=== PATIENT | female | born 1980 | race African-American/Black ===

== ENCOUNTER 2017-06-11 11:01 | Inpatient (IN) ==
[2017-06-11] MEDS ORDERED: ONDANSETRON 4 MG/2 ML VIAL IV PRN (11:20)
[2017-06-11] MEDS ORDERED: MEPERIDINE 50 MG/1 ML VIAL IV PRN (11:20)
[2017-06-11] MEDS ORDERED: OXYTOCIN/LR 20 UNIT/1,000 ML BAG IV SCH (11:30)
[2017-06-11] MEDS: LACTATED RINGERS 1,000 ML IV SCH ×2 (11:35→12:53)
[2017-06-11] MEDS ORDERED: fentaNYL 2 MCG/ROPIV 0.2% EPID 150 ML EPIDURAL SCH (11:44)
[2017-06-11] MEDS ORDERED: hydrOXYzine HCL 25 MG/1 ML VIAL IM PRN (11:44)
[2017-06-11] MEDS ORDERED: diphenhydrAMINE 50 MG/1 ML VIAL IV PRN (11:44)
[2017-06-11] MEDS ORDERED: FAMOTIDINE 20 MG/2 ML VIAL IV ONE (11:44)
[2017-06-11] MEDS ORDERED: CITRIC ACID/SODIUM CITRATE 30 ML UDCUP PO ONE (11:44)
[2017-06-11] MEDS ORDERED: ePHEDrine 50 MG/ML AMP IV PRN (11:44)
[2017-06-11 11:48] LABS: Basophils % 0.2 % (0.0-0.8); Eosinophils % 0.2 % (0.00-10.9); Hematocrit 26.7 VOL% (35.7-47.0); Immature Granulocytes % 1.2 %; Immature Granulocytes Absolute 0.16 #; Lymphocytes # 1.8 10*3/uL (1.4-4.0); Lymphocytes % 13.9 % (21.3-54.2); Mean Corpuscular HGB Conc 33.7 GM/DL (32-36); Mean Corpuscular Hemoglobin 26 PG (27-34); Mean Corpuscular Volume 76.3 FL (87-102); Mean Platelet Volume 10.3 FL (9.6-12.0); Monocytes # 0.7 10*3/uL (0.11-0.8); Monocytes % 5.3 % (1.7-12.7); NRBC # 0.04 10*3/uL; Neutrophils # 10.5 10*3/uL (1.4-7.4); Neutrophils % 79.2 % (38.7-73.9); Platelet Count 209 T/CUMM (130-400); Red Cell Distribution Width 16.1 % (9.3-17.3); White Blood Count 13.2 T/CUMM (4-12)
[2017-06-11 11:58] LABS: INR 0.9; PT Patient Result 9.5 SECS; Partial Thromboplastin Time 30.1 SECS (0-40)
[2017-06-11 12:34] LABS: Albumin 2.7 G/DL (3.4-5.0); Bilirubin,Total 0.7 MG/DL (0.2-1.0); Calcium 8.3 MG/DL (8.5-10.1); Osmolality,Calculated 270.7 MOS/KG (273-304); Potassium 3.4 MMOL/L (3.5-5.1); Total Protein 6.5 G/DL (6.4-8.3); Uric Acid 4.2 MG/DL (2.6-6.0)
--- NOTE | 2017-06-11 14:12 | OB/GYN History & Physical ---
History of Present Illness Chief complaint: In for evaluation of hypertension and uterine contractions. History of present illness: Ms. Chavez is a 36 year old female who is a 7 para 4 living for 1 ectopic. Her JUNI is 06/22/2017 for an estimated gestational age of 38 weeks and 3 days. The patient presents to the labor department for routine nonstress test due to elevated blood pressures. However upon arrival to the unit the patient was still experiencing elevated blood pressures along with uterine contractions and bulging BOW. In light of these findings the patient was admitted for augmentation of labor due to hypertension complicated by . The risk and benefits were thoroughly discussed with this patient and significant other, plan of care was discussed with Dr. Woody and all parties were in agreement plan. The patient received her care through the [facility] and it was complicated by the fact that the patient has a history of hypertension and PIH during her previous pregnancies. She has had 4 previous vaginal deliveries with the largest weighing 6 pounds and 13 ounces. labs: She is O+, rubella is immune, RPR is nonreactive, hepatitis B negative, HIV negative, GBS culture positive. Review of systems is negative with exception of above. Home Medications Medication Instructions Recorded Confirmed Type Ondansetron Tab [Zofran Tab] 4 mg PO Q4-6H 06/08/17 06/11/17 History Promethazine Tab [Phenergan Tab] 25 mg PO Q6H PRN 06/11/17 06/11/17 History Allergies Allergy/AdvReac Type Severity Reaction Status Date / Time No Known Allergies Allergy Unverified 01/22/17 15:49 12 point system: reviewed and no additional remarkable complaints except as stated Medical,Surgical,& Family Hx - Medical History Cardio: History of: Hypertension Reproductive: History of: Ectopic , Complication, Sexually Transmitted Disorders (Trichomonas 4 years ago) - Surgical History Reproductive Surgeries: Surgical HX of;: Dilation and Curettage - Family History Family History: Reports;: Family Hypertension - Social History Smoking Status: Former smoker Have you smoked in the last 12 months: Yes Marital Status: Single Lives With:: Significant Other Functional capacity: independent ambulation Exam SUPERVISOR PRODUCTION - Constitutional General appearance: mild distress - Antepartum / Post Antepartum Exam Cervix - Dilatation: 3-4 cm Effacement: 80% Station: -2 Rupture: Spontaneous rupture Presentation: Vertex Heart Rate: 120S Abdomen obstetrics: Present: bowel sounds normal Vagina: Present: normal moisture, discharge Uterus exam: Present: enlarged Anus/Rectum: Present: normal perianal skin - Head Head exam: Present: normal inspection - Respiratory Respiratory exam: Present: clear to auscultation bilaterally - Cardiovascular Cardiovascular exam: Present: regular rate and rhythm - GI/Abdominal GI/Abdominal exam: Present: normal bowel sounds, soft - Extremities Exam Extremities exam: Present: normal inspection - Back Exam Back exam: Present: normal inspection - Neurological Exam Neurological exam: Present: alert, oriented X3 - Psychiatric Psychiatric exam: Present: normal affect, normal mood - Skin Skin exam: Present: normal color, warm Assessment and Plan (1) 38 and 3 days Status: Acute Assessment and plan: Admit IV fluids PIH and blood pressure management Epidural anesthesia if desired Internal monitors if indicated IV Pitocin per protocol IV antibiotics prophylactically Anticipate Current Visit: Yes (2) Hypertension affecting in third trimester Status: Acute Assessment and plan: Same as above. Current Visit: Yes Results - Labs CBC & BMP: 06/11/17 11:40 06/11/17 11:40
[2017-06-11] MEDS ORDERED: OXYTOCIN 10 UNIT/ML VIAL ONE (18:03)
[2017-06-11] MEDS ORDERED: miSOPROStol 200 MCG TABLET ONE (19:33)
[2017-06-11] MEDS ORDERED: HYDROCORTISONE 2.5% RECTAL CREAM 30 GM TUBE TOP PRN (21:50)
[2017-06-11] MEDS ORDERED: OXYTOCIN/LR 20 UNIT/1,000 ML BAG IV ONE (21:50)
[2017-06-11] MEDS ORDERED: DIPH/TET/ACEL PERT BOOSTER VACCINE 0.5 ML VIAL IM ONE (21:50)
[2017-06-11] MEDS ORDERED: ACETAMINOPHEN 325 MG TABLET PO PRN (21:50)
[2017-06-11] MEDS ORDERED: BISACODYL 10 MG SUPP RECTAL PRN (21:50)
[2017-06-11] MEDS ORDERED: RHO(D) IMMUNE GLOBULIN 300 MCG SYRINGE IM ONE (21:50)
[2017-06-11] MEDS ORDERED: BENZOCAINE 20%/MENTHOL 0.5% SPRAY 56 GM CAN TOP PRN (21:50)
[2017-06-11] MEDS ORDERED: LANOLIN 50% CREAM 0.3 OZ TUBE TOP PRN (21:50)
[2017-06-11] MEDS ORDERED: MEASLES/MUMPS/RUBELLA VACCINE 0.5 ML VIAL SUBCUT ONE (21:50)
[2017-06-11] MEDS ORDERED: oxyCODONE/ACETAMINOPHEN 5-325 MG TABLET PO PRN ×2 (21:50)
[2017-06-11] MEDS ORDERED: WITCH HAZEL PADS 100/JAR TOP PRN (21:50)
--- NOTE | 2017-06-11 21:50 | Event Note ---
HPI: Ms. Stanton is a 36-year-old female who presented to the labor department with elevated blood pressures. The patient was also having uterine contractions and experienced spontaneous rupture of membranes. She was admitted for augmentation of labor due to the above. The risk and benefits were thoroughly discussed with this patient and significant other, plan of care was discussed with Dr. Woody and all parties were in agreement plan. Stage I: The patient was admitted she received IV fluids and IV Pitocin per protocol. She did experience spontaneous rupture membranes with clear fluid noted. She received an epidural for pain control. The patient progressed in labor with a CAT 1 tracing until she was about 5 cm dilated she started to experience a CAT 2 tracing. The tracing was correct with position change, oxygenation, fluid challenge. The Pitocin was also DC during this time of the CAT 2 tracing after several minutes had passed an attempt to resume the Pitocin was initiated. The patient did well for a while until she started back having a CAT 2 tracing. At this time an IUPC catheter was inserted and an amnioinfusion was performed. Dr. Woody was notified of the patient's status at this time in continue to be updated throughout stage I of the labor. The patient had a few more episodes of a CAT 2 tracing but each time had good recovery and the Pitocin remained off during the time that the patient was recovering. When an adequate recovery period was determined the Pitocin was resumed and the patient continued to progress until she was complete. Stage II: The patient was complete and instructed to push. She pushed for approximately 45 minutes after which time and the 's head was at a +3 station it was noted to be presumably in an OP position the 's head was manually rotated and immediately after the rotation the infant's head was delivered a nuchal cord 1 was noted and reduced. The mouth and nose suctioned on the perineum. The remainder the infant was delivered at 2136 a viable male infant was noted. The infant also had a terminal meconium stool. Apgars were 8 at 1 minute and 9 at 5 minutes. weight was 6 pounds and 7 ounces. A cord pH was obtained and sent to the lab. Stage III: A spontaneous delivery of a Benoit placenta with three-vessel cord noted. The placenta was further examined appeared to be grossly intact. The vagina cervix inspected with no tears or lacerations noted. Estimated blood loss was approximately 150 cc. At the time of dictation mother and baby are both in stable condition.
[2017-06-11] MEDS ORDERED: ACETAMINOPHEN/CODEINE 300-30 MG TABLET PO PRN (21:52)
[2017-06-11] MEDS: IBUPROFEN 800 MG TABLET PO PRN (23:37)
[2017-06-12 05:13] LABS: Basophils # 0.1 10*3/uL (0.0-0.2); Basophils % 0.2 % (0.0-0.8); Hematocrit 27.3 VOL% (35.7-47.0); Hemoglobin 9.2 GM/DL (12.0-16.0); Immature Granulocytes % 1.3 %; Immature Granulocytes Absolute 0.37 #; Lymphocytes # 2.2 10*3/uL (1.4-4.0); Lymphocytes % 8.1 % (21.3-54.2); Mean Corpuscular HGB Conc 33.7 GM/DL (32-36); Mean Corpuscular Hemoglobin 26 PG (27-34); Mean Platelet Volume 10.4 FL (9.6-12.0); Monocytes # 1.5 10*3/uL (0.11-0.8); Monocytes % 5.5 % (1.7-12.7); NRBC # 0.03 10*3/uL; Neutrophils # 23.3 10*3/uL (1.4-7.4); Neutrophils % 84.9 % (38.7-73.9); Platelet Count 207 T/CUMM (130-400); Red Blood Count 3.59 MC/CUMM (3.8-5.5); Red Cell Distribution Width 16.1 % (9.3-17.3); White Blood Count 27.5 T/CUMM (4-12)
[2017-06-12 06:28] LABS: Band Neutrophils 12 % (0-10); Eosinophils 2 % (0-10); Hypochromasia Slight; Lymphocytes 9 % (20-55); Polychromasia Slight; Segmented Neutrophils 73 % (50-85); Target Cells Slight; Total Cells Counted 100
[2017-06-12 06:29] LABS: Platelet Estimate Adequate
[2017-06-12] MEDS: IBUPROFEN 800 MG TABLET PO PRN (09:10)
[2017-06-12] MEDS: DOCUSATE SODIUM 100 MG CAPSULE PO SCH ×2 (09:11→20:18)
--- NOTE | 2017-06-12 09:28 | OB/GYN Progress Note ---
Assessment and Plan (1) 38 and 3 days Status: Acute Assessment and plan: Admit IV fluids PIH and blood pressure management Epidural anesthesia if desired Internal monitors if indicated IV Pitocin per protocol IV antibiotics prophylactically Anticipate Current Visit: Yes (2) Hypertension affecting in third trimester Status: Acute Assessment and plan: Same as above. Current Visit: Yes (3) Vaginal delivery Status: Acute Assessment and plan: Initiate routine orders. 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 Bonding well with infant. Exam SWITCHBOARD OPERATOR RECEPTIONIST - Constitutional Vitals: Vital Signs Temp Pulse Resp BP 06/12/17 06:00 18 06/12/17 04:00 97.6 F 71 20 132/75 06/12/17 01:47 97.9 F 89 18 144/104 06/12/17 00:47 97.9 F 81 18 135/70 06/12/17 00:17 98.5 F 85 18 138/78 06/11/17 23:46 98.5 F 96 H 20 136/67 06/11/17 20:00 98.7 F 71 22 132/63 General appearance: no acute distress - Antepartum / Post Post Exam Breast: bilateral: normal Abdomen obstetrics: Present: bowel sounds normal Vulva: bilateral: normal Vagina: Present: normal moisture, discharge (Light lochia rubra) Uterus exam: Present: enlarged (Fundus firm and midline) Anus/Rectum: Present: normal perianal skin - Respiratory Respiratory exam: Present: clear to auscultation bilaterally - Cardiovascular Cardiovascular exam: Present: regular rate and rhythm - GI/Abdominal GI/Abdominal exam: Present: normal bowel sounds, soft - Extremities Exam Extremities exam: Present: normal inspection - Back Exam Back exam: Present: normal inspection - Neurological Exam Neurological exam: Present: alert, oriented X3 - Psychiatric Psychiatric exam: Present: normal affect, normal mood - Skin Skin exam: Present: normal color, warm Results - Labs CBC & BMP: 06/12/17 04:51 06/11/17 11:40
[2017-06-12] MEDS ORDERED: ONDANSETRON 4 MG/2 ML VIAL IV PRN (11:04)
[2017-06-12] MEDS: FERROUS SULFATE 325 MG TABLET PO SCH ×2 (11:22→20:18)
[2017-06-13] MEDS ORDERED: ONDANSETRON 4 MG TABLET PO PRN (00:03)
[2017-06-13] MEDS: IBUPROFEN 800 MG TABLET PO PRN (00:13)
--- NOTE | 2017-06-13 06:56 | Anesthesia Post-Op ---
Anesthesia Post OP - Post Ansesthetic Evaluation Patient seen in post op: Yes Resp: within normal limits CV: within normal limits Mental: within normal limits Temp: within normal limits [id number]: within normal limits Nausea and Vomiting: within normal limits Pain: within normal limits
[2017-06-13 07:50] VITALS: BP 131/76
--- NOTE | 2017-06-13 08:49 | Discharge Summary ---
Hospital Course - Hospital Course Hospital Course: day #2 Status post vaginal Lungs are clear, cardiac exam benign, uterus is nice and firm, questionable hernia, will assess this at approximately 4-6 weeks to rule out diastases recti. Extremities well with no limits Neurologically grossly intact Specialty Discharge - Follow Up or Referrals Follow up with: Brent Woody MD [Physician] - Discharge Plan - Discharge Data Condition at Discharge: Stable Discharge Diet: advance to your usual diet Activity: increase activity as tolerated Hygiene: may shower Weight Bearing at Discharge: weight bear as tolerated Driving: no restrictions Contact your physician if you experience:: fever over 101, Shortness of breath, Bleeding - Discharge Medications New Acetamin/Codeine 300-30 Tab [Tylenol/Codeine #3] 2 tablet PO Q4H PRN #30 tablet PRN Reason: Pain Mild (1-3) Ferrous Sulfate Tab [Feosol Original Tab] 325 mg PO BID #60 tablet Ibuprofen Tab [Motrin Tab] 800 mg PO Q6H PRN #60 tablet PRN Reason: Pain Moderate (4-7) No Action Ondansetron Tab [Zofran Tab] 4 mg PO Q4-6H Promethazine Tab [Phenergan Tab] 25 mg PO Q6H PRN PRN Reason: Nausea - Follow Up or Referral Follow Up: Brent Woody MD [Physician] - - Forms/Instructions Instructions: Perineal Care (DC), Vaginal Delivery (DC), Bleeding (DC) Exam - Constitutional Vitals: Period Temp Pulse Resp BP Sys/Anderson Pulse Ox Last 24 Hr 97.2 F-98.2 F 67-84 16-20 123-150/71-90 97-98 DS: Provider Date of admission: 06/11/17 11:20 Primary care physician: . No PCP Attending physician on admission: Brent Woody MD Consults: 06/11/17 11:20 Consult to Anesthesiology [CONS] Routine Consulting Provider: Reason for Anesthesiology: Epidural Consult Comment: Epidural for pain managment 06/11/17 21:50 Consult to Server Assistant [CONS] Routine Consult Server Assistant: Breast Feeding Discharging clinician: Brent Woody MD
[2017-06-13] MEDS: FERROUS SULFATE 325 MG TABLET PO SCH (08:54)
[2017-06-13] MEDS: DOCUSATE SODIUM 100 MG CAPSULE PO SCH (08:54)
== END 2017-06-13 13:35 | disposition home or self-care (01) | DRG 560 ==
LOC: N.LDOUT 11:01 → N.LD 11:04 → N.OB 06-12 09:38
PROVIDERS: ADMIT Obstetrics & Gynecology; ATTEND Obstetrics & Gynecology